=== PATIENT | female | born 1965 | race Caucasian/White ===

== ENCOUNTER 2017-09-09 12:20 | Inpatient (IN) | payer SELFPAY ==
[~2017-09-09] VITALS: Ht 162.6 cm; Wt 85.9 kg
[2017-09-09] VITALS (9 sets, daily range): BP systolic 151–176; BP diastolic 99–112
[2017-09-09] MEDS ORDERED: LABETALOL 20 MG/4 ML DISP.SYRIN. IVP ONE (12:45)
--- NOTE | 2017-09-09 12:45 | RAD ---
PQRS Compliance Statement: One or more of the following individualized dose reduction techniques were utilized for this examination: 1. Automated exposure control 2. Adjustment of the mA and/or kV according to patient size 3. Use of iterative reconstruction technique CT HEAD WITHOUT CONTRAST History: cva . Dizziness, left leg heaviness. Comparison: None. Procedure: Axial images are obtained of the head from the skull base through the vertex without IV contrast. Findings: Richey-white matter differentiation is preserved. The ventricles and sulci are normal for the patient's age.. No mass-effect, midline shift, hemorrhage or obvious acute infarction is identified. Basilar cisterns are patent. Bone windows demonstrate no significant calvarial abnormality.The visualized paranasal sinuses appear clear. Mastoid air cells are well aerated. IMPRESSION: No acute intracranial abnormality. Code stroke results called to Dr. Duvall in the ED at 12:39 PM.
[2017-09-09 12:58] LABS: BASO # 0.2 x10^3/uL (0.0-0.2); BASO % 2 % (0-3); EOS % 3 % (0-3); HEMATOCRIT 38.9 % (36.0-47.0); HEMOGLOBIN 13.2 g/dL (12.0-15.5); LYMPH # 1.5 x10^3/uL (1.0-4.8); LYMPH % 17 % (24-48); MEAN CORPUSCULAR HEMOGLOBIN 31 pg (25-35); MEAN CORPUSCULAR HGB CONC 34 g/dL (31-37); MEAN CORPUSCULAR VOLUME 93 fL (79-100); MONO % 5 % (0-9); NEUT % 73 % (31-73); PLATELET COUNT 295 x10^3/uL (140-400); RED CELL DISTRIBUTION WIDTH 13.7 % (11.5-14.5); WHITE BLOOD COUNT 8.8 x10^3/uL (4.0-11.0)
[2017-09-09 13:09] LABS: CALCIUM 9.2 mg/dL (8.5-10.1); CREATININE 1.1 mg/dL (0.6-1.0); GFR 52.4; POTASSIUM 3.8 mmol/L (3.5-5.1)
--- NOTE | 2017-09-09 13:10 | EKG ---
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
[2017-09-09 13:11] LABS: NEG OBC SER NEG; POS OBC SER POS; PROTHROMBIN TIME PATIENT 12.5 SEC (11.7-14.0)
[2017-09-09 13:15] LABS: ALBUMIN 4.2 g/dL (3.4-5.0); ALBUMIN/GLOBULIN RATIO 1.2 (1.0-1.7); TOTAL BILIRUBIN 0.4 mg/dL (0.2-1.0); TOTAL PROTEIN 7.6 g/dL (6.4-8.2)
[2017-09-09] MEDS ORDERED: ALTEPLASE IV ONE (13:15)
[2017-09-09] MEDS ORDERED: ALTEPLASE IV SCH (13:15)
--- NOTE | 2017-09-09 13:45 | PHYS DOC ---
Past Medical History Past Medical History: Other Additional Past Medical Histor: "thyroid problems" Past Surgical History: No Surgical History Alcohol Use: None Drug Use: None Adult General Chief Complaint Chief Complaint: NEURO SYMPTOMS/DEFICITS HPI HPI Patient is a 52 year old female with history of hypothyroidism presents with acute onset left lower extremity weakness or loss of sensation and decreased sensation to left upper extremity. Time of onset was 30 minutes prior to ED arrival. Patient was standing in her kitchen at times symptoms began. She first noticed while standing in the kitchen. Patient arrives to the ED by. A code was brought back to a treatment room. Patient states left leg remains heavy numbness left arm and left foot are resolved. Patient denies headache, chest pain, palpitations, change of vision, speech, upper extremity weakness or loss of balance. Patient's blood pressure noted to be elevated at 201/116 triage. Patient denies knowledge of chin, but states she has not seen a doctor in years and does not take any medications on a regular basis. Patient is a 1.5 pack per day smoker with a [id number] history patient drinks occasional alcohol. She is accompanied at bedside by her mother and niece. Patient does not currently have a primary care physician.[] Review of Systems Review of Systems ROS as per HPI. All other systems were reviewed and found to be within normal limits, except as documented in this note. Current Medications Current Medications Current Medications Medications (Trade) Dose Ordered Sig/Axel Start Time Stop Time Status Last Admin Dose Admin Alteplase, Recombinant 0 ml @ 0 mls/hr Q1H 09/09/17 13:15 09/09/17 13:16 DC 09/09/17 13:22 72.1 MLS/HR Labetalol HCl (Normodyne) 20 mg 1X ONCE 09/09/17 12:45 09/09/17 12:47 DC 09/09/17 12:55 20 MG Nicardipine HCl 50 mg/Sodium Chloride 270 ml @ 0 mls/hr CONT PRN 09/09/17 13:00 09/09/17 19:36 DC 09/09/17 13:25 25 MLS/HR Allergies Allergies Allergies Coded Allergies Type Severity Reaction Last Updated Verified No Known Drug Allergies 09/09/17 No Physical Exam Physical Exam Constitutional: Well developed, well nourished, no acute distress, non-toxic appearance. [] HENT: Normocephalic, atraumatic, bilateral external ears normal, oropharynx moist, no oral exudates, nose normal. [] Eyes: PERRLA, EOMI, conjunctiva normal, no discharge. [] Neck: Normal range of motion, no tenderness, supple, no stridor. [] Cardiovascular:Heart rate regular rhythm, no murmur [] Lungs & Thorax: Bilateral breath sounds clear to auscultation [] Abdomen: Bowel sounds normal, soft, no tenderness, no masses, no pulsatile masses. [] Skin: Warm, dry, no erythema, no rash. [] Back: No tenderness, no CVA tenderness. [] Extremities: No tenderness, no cyanosis, no clubbing, ROM intact, no edema. [] Neurologic: Alert and oriented X 3, cranial nerves II through XII grossly intact , left lower extremity weakness. NIH stroke score of 3 per nurse stroke assessment. [] Psychologic: Affect normal, judgement normal, mood normal. [] Current Patient Data Vital Signs Vital Signs Date Time Temp Pulse Resp B/P (MAP) Pulse Ox O2 Delivery O2 Flow Rate FiO2 09/09/17 14:00 63 16 95 09/09/17 12:55 200/121 09/09/17 12:25 98.2 Room Air 98.2 Lab Values Laboratory Tests Test 09/09/17 12:40 09/09/17 12:42 White Blood Count 8.8 x10^3/uL (4.0-11.0) Red Blood Count 4.20 x10^6/uL (3.50-5.40) Hemoglobin 13.2 g/dL (12.0-15.5) Hematocrit 38.9 % (36.0-47.0) Mean Corpuscular Volume 93 fL (79-100) Mean Corpuscular Hemoglobin 31 pg (25-35) Mean Corpuscular Hemoglobin Concent 34 g/dL (31-37) Red Cell Distribution Width 13.7 % (11.5-14.5) Platelet Count 295 x10^3/uL (140-400) Neutrophils (%) (Auto) 73 % (31-73) Lymphocytes (%) (Auto) 17 % (24-48) L Monocytes (%) (Auto) 5 % (0-9) Eosinophils (%) (Auto) 3 % (0-3) Basophils (%) (Auto) 2 % (0-3) Neutrophils # (Auto) 6.4 x10^3uL (1.8-7.7) Lymphocytes # (Auto) 1.5 x10^3/uL (1.0-4.8) Monocytes # (Auto) 0.5 x10^3/uL (0.0-1.1) Eosinophils # (Auto) 0.3 x10^3/uL (0.0-0.7) Basophils # (Auto) 0.2 x10^3/uL (0.0-0.2) Prothrombin Time 12.5 SEC (11.7-14.0) Prothrombin Time INR 1.0 (0.8-1.1) PTT 34 SEC (24-38) Sodium Level 138 mmol/L (136-145) Potassium Level 3.8 mmol/L (3.5-5.1) Chloride Level 102 mmol/L (98-107) Carbon Dioxide Level 30 mmol/L (21-32) Anion Gap 6 (6-14) Blood Urea Nitrogen 18 mg/dL (7-20) Creatinine 1.1 mg/dL (0.6-1.0) H Estimated GFR (Cockcroft-Gault) 52.4 BUN/Creatinine Ratio 16 (6-20) Glucose Level 85 mg/dL (70-99) Calcium Level 9.2 mg/dL (8.5-10.1) Total Bilirubin 0.4 mg/dL (0.2-1.0) Aspartate Amino Transferase (AST) 34 U/L (15-37) Alanine Aminotransferase (ALT) 34 U/L (14-59) Alkaline Phosphatase 86 U/L (46-116) Total Protein 7.6 g/dL (6.4-8.2) Albumin 4.2 g/dL (3.4-5.0) Albumin/Globulin Ratio 1.2 (1.0-1.7) Serum Test, Qualitative Negative (NEG) Glucose (Fingerstick) 84 mg/dL (70-99) Laboratory Tests 09/09/17 12:40 Laboratory Tests 09/09/17 12:40 EKG EKG [EKG: Sinus rhythm, rate 77, no acute ST-T wave changes, QTC 443. Edition by this physician.] Radiology/Procedures Radiology/Procedures [CT head: No acute intracranial disease per radiology report.] Course & Med Decision Making Course & Med Decision Making Pertinent Labs and Imaging studies reviewed. (See chart for details) [Patient activated for code stroke on ED arrival. CT head negative, and I stroke score 3 without significant clinical improvement. Patient does not meet exclusion criteria for TPA with the exception of hypertension which was treated prior to administration. Labetalol given for initial blood pressure management. Patient placed on Cardene drip instructions to pain systolic blood pressure less than 185 and diastolic blood pressure less than 100. Risks, benefits and alternatives of TPA discussed in detail with the patient. Patient was able to restated the purpose, potential benefits and risks of TPA and gives verbal consent prior to administration. Family member's and did not have any questions regarding administration of TPA. Dr. Lees bacon de rinder for neurology consults his degrees for plans to administer TPA . Dr Moya to admit the ICU. TPA administered. Blood pressure control. Patient has some gingival bleeding over reported tooth. Packing placed. Critical care time: 45 minutes ] Dragon Disclaimer Dragon Disclaimer This electronic medical record was generated, in whole or in part, using a voice recognition dictation system. Departure Departure Impression: Primary Impression: CVA (cerebral vascular accident) Additional Impression: Left-sided weakness Disposition: 09 ADMITTED INPATIENT Admitting Physician: Marlyn Moya Condition: CRITICAL Referrals: NO PCP (PCP) Problem Qualifiers AMADO STARR DO Sep 09, 2017 13:45
[2017-09-09] MEDS ORDERED: IV NORMAL SALINE 50ML 50 ML IV ONE (14:15)
[2017-09-09] MEDS ORDERED: CONTRAST GIVEN MC PRN (15:00)
[2017-09-09] MEDS ORDERED: IOHEXOL 300 MG/ML 100ML VIAL. IV ONE (15:30)
[2017-09-09] MEDS ORDERED: ACETAMINOPHEN 325 MG TABLET. PO PRN ×2 (15:45)
[2017-09-09] MEDS: MORPHINE SULFATE 4 MG/ML DISP.SYRIN. IV PRN ×2 (15:49→16:40)
--- NOTE | 2017-09-09 16:09 | RAD ---
PQRS Compliance Statement: One or more of the following individualized dose reduction techniques were utilized for this examination: 1. Automated exposure control 2. Adjustment of the mA and/or kV according to patient size 3. Use of iterative reconstruction technique CT ANGIOGRAPHY HEAD AND NECK Clinical Indication: STROKE Comparison: CT head without contrast, earlier same day. Technique: Helical CT imaging from the aortic arch to the skull cortex is performed after 60 cc of Omnipaque [address] angiogram protocol. 3-D MIP reconstructions of the [place] and of the cervical carotid arteries is performed. Stenosis calculations for CT, MR and conventional angiography are based upon measurements of the distal ICA diameter in accordance with NASCET methodology. Stenosis calculations for carotid ultrasound studies are derived from validated velocity criteria which are known to correlate with the NASCET methodology. Findings: The cervical common and internal carotid arteries are patent. The right vertebral artery is dominant. Left vertebral artery distally appears to end in PICA. Basilar artery is intact. Persistent origin of the right posterior cerebral artery. The left posterior cerebral artery is intact. The distal internal carotid arteries are patent. Anterior circulation is intact. There is no intracranial aneurysm. No focal stenosis or occlusion is seen. In the right occipital lobe there is a round faintly enhancing intra-axial mass measuring 2.8 x 2.6 x 2.7 cm. There is a thin halo of hypodensity that may be edema. No other abnormal enhancement in the brain parenchyma is identified. No consolidation in the lung apices. No cervical adenopathy. IMPRESSION: 1. Normal CTA head and neck findings. 2. There is a round faintly enhancing intra-axial mass in the right occipital lobe. There is minimal surrounding edema. Recommend further evaluation with MR brain with and without contrast.
[2017-09-09] MEDS ORDERED: BUTALB/APAP/CAFEIN 50/325/40MG TABLET. PO PRN (16:30)
[2017-09-09] MEDS ORDERED: MORPHINE SULFATE 4 MG/ML DISP.SYRIN. IV PRN (16:30)
[2017-09-09] MEDS ORDERED: MORPHINE SULFATE 4 MG/ML DISP.SYRIN. IV ONE (16:30)
--- NOTE | 2017-09-09 16:34 | PDOC2 ---
NEUROLOGY CONSULT Date of Admission Date of Admission DATE: 09/09/17 TIME: 15:59 Reason for Consult Reason for Consult: IMPRESSION: Left side paresthesia, heaviness and weakness. Hypertensive urgency, BP 200/110 mmHg. HTN Smoking. Obesity. No aneurysm or AVM on CTA. RECOMMENDATIONS/PLAN: BP control. TPA was administrated in the ER after all criteria met and patient consented. HCT performed. CTA performed, brain mass suggested. Brain MRI w/wo contrast, Stat. Treat medical diseases. Carotid A US + Doppler. Echo + Bubble study. Fasting lipids in am Tylenol and morphine prn for headaches (HTN, Calcium channel facundo side effects also contribute). OT/PT Discussed with her daughter at bedside in ICU. HISTORY OF THE PRESENT ILLNESS: 52-y-old female patient with above medical disease developed symptoms of left side paresthesia, numbness, heaviness and weakness while working in kitchen at home. Her symptoms lasted for about a half hour before she was brought to the ER. Her symptoms still persistent and her BP was 200/110 mmHg. Her HCT was negative w/o signs of ICH or SAH. After all criteria were met and patient consent, TPA was administrated. Patient was transferred to ICU. Patient then complained severe headache. CTA results returned reported a brain mass. Brain MRI Stat. Past Medical History: Thyroid problems" Has not seen physician for a long time. HTN has not controlled. Past Surgical History: No major surgery recently. ALLERGY: Reviewed. MEDICATIONS: Refer to [facility] FAMILY HISTORY: Non contributory. SOCIAL HISTORY: Lives at home. Smoking. REVIEW OF SYSTEMS: Constitutional: Obesity. Head: No recent traumatic brain or head injury. Skin: No edema, or rash. Ear: No infection. Eyes: No vision loss or color blindness. Nose: No bleeding or purulent discharges. Hearing: No hearing decrease. Neck: No injury. Cardiac: HTN. Pulmonary: No COPD. GI: No GI ulcer, GI bleeding. Urinary/genital: UTI. Endocrinologic: Obesity. Thyroidism. Skeletomuscular: No muscular atrophy, deformity. Neurological: see HP. Psychiatric: Denies drug use/abuse. Otherwise, not [id number] review of systems. PHYSICAL EXAMINATION: General appearance is in acute distress. HEENT: Normocephalic and nontraumatic. Eyes, nose, ears, and throat are unremarkable. Neck is supple. No lymphadenopathy. No crepitus. Cardiovascular: S1, S2, regular rate and rhythm. Pulmonary: Clear to auscultation bilaterally. Abdomen: Bowel sounds are positive. Abdomen is soft, nontender, and nondistended. Extremities: No rash, lesions, or edema. No restriction of range of motion NEUROLOGICAL EXAMINATION: Awake. Oriented to place and person but not sure about time. PERRL. EOMI. CN: no focal findings. Muscle tone: within normal. Muscle strength: 4 left LE, 5- the rest. DTR: 1+ due to obesity. Plantar reflex: Neutral response bilaterally Gait: not examined in bed. Sensory exam: no acute abnormal findings. Not able to access cerebellar signs due to not cooperative. F-T-N test not performed. Current Medications Current Medications Current Medications Labetalol HCl (Normodyne) 20 mg 1X ONCE IVP Last administered on 09/09/17 12 :55; Start 09/09/17 at 12:45; Stop 09/09/17 at 12:47; Status DC Nicardipine HCl 50 mg/Sodium Chloride 270 ml @ 0 mls/hr CONT PRN IV SEE I/O RECORD Last administered on 09/09/17 13:25; Start 09/09/17 at 13:00 Alteplase, Recombinant 0 ml @ 0 mls/hr 1X ONCE IV Last administered on 13:17; Start 09/09/17 at 13:15; Stop 09/09/17 at 13:16; Status DC Alteplase, Recombinant 0 ml @ 0 mls/hr Q1H IV Last administered on 09/09/17 13:22; Start 09/09/17 at 13:15; Stop 09/09/17 at 13:16; Status DC Sodium Chloride 50 ml @ 0 mls/hr 1X ONCE IV Last administered on 09/09/17 14 :18; Start 09/09/17 at 14:15; Stop 09/09/17 at 14:16; Status DC Iohexol (Omnipaque 300 Mg/ml) 60 ml 1X ONCE IV Last administered on 15:18; Start 09/09/17 at 15:30; Stop 09/09/17 at 15:31; Status DC Info (Do NOT chart on this entry -- for MONITORING) 1 each PRN DAILY PRN MC SEE COMMENTS; Start 09/09/17 at 15:00; Stop 09/11/17 at 14:59 Morphine Sulfate 2 mg PRN Q3HRS PRN IV PAIN Last administered on 09/09/17t 15: 49; Start 09/09/17 at 15:45 Acetaminophen (Tylenol) 325 mg PRN Q6HRS PRN PO MILD PAIN / TEMP; Start at 15:45 Acetaminophen (Tylenol) 650 mg PRN Q6HRS PRN PO MILD PAIN; Start 09/09/17 at 15:45 Allergies Allergies: Coded Allergies: No Known Drug Allergies (Unverified , 09/09/17) Vitals VITALS Vital Signs Date Time Temp Pulse Resp B/P (MAP) Pulse Ox O2 Delivery O2 Flow Rate FiO2 09/09/17 14:20 60 16 97 09/09/17 12:55 200/121 09/09/17 12:25 98.2 Room Air 98.2 Labs Labs Laboratory Tests Test 09/09/17 12:40 09/09/17 12:42 White Blood Count 8.8 x10^3/uL (4.0-11.0) Red Blood Count 4.20 x10^6/uL (3.50-5.40) Hemoglobin 13.2 g/dL (12.0-15.5) Hematocrit 38.9 % (36.0-47.0) Mean Corpuscular Volume 93 fL (79-100) Mean Corpuscular Hemoglobin 31 pg (25-35) Mean Corpuscular Hemoglobin Concent 34 g/dL (31-37) Red Cell Distribution Width 13.7 % (11.5-14.5) Platelet Count 295 x10^3/uL (140-400) Neutrophils (%) (Auto) 73 % (31-73) Lymphocytes (%) (Auto) 17 % (24-48) Monocytes (%) (Auto) 5 % (0-9) Eosinophils (%) (Auto) 3 % (0-3) Basophils (%) (Auto) 2 % (0-3) Neutrophils # (Auto) 6.4 x10^3uL (1.8-7.7) Lymphocytes # (Auto) 1.5 x10^3/uL (1.0-4.8) Monocytes # (Auto) 0.5 x10^3/uL (0.0-1.1) Eosinophils # (Auto) 0.3 x10^3/uL (0.0-0.7) Basophils # (Auto) 0.2 x10^3/uL (0.0-0.2) Prothrombin Time 12.5 SEC (11.7-14.0) Prothromb Time International Ratio 1.0 (0.8-1.1) Activated Partial Thromboplast Time 34 SEC (24-38) Sodium Level 138 mmol/L (136-145) Potassium Level 3.8 mmol/L (3.5-5.1) Chloride Level 102 mmol/L (98-107) Carbon Dioxide Level 30 mmol/L (21-32) Anion Gap 6 (6-14) Blood Urea Nitrogen 18 mg/dL (7-20) Creatinine 1.1 mg/dL (0.6-1.0) Estimated GFR (Cockcroft-Gault) 52.4 BUN/Creatinine Ratio 16 (6-20) Glucose Level 85 mg/dL (70-99) Calcium Level 9.2 mg/dL (8.5-10.1) Total Bilirubin 0.4 mg/dL (0.2-1.0) Aspartate Amino Transf (AST/SGOT) 34 U/L (15-37) Alanine Aminotransferase (ALT/SGPT) 34 U/L (14-59) Alkaline Phosphatase 86 U/L (46-116) Total Protein 7.6 g/dL (6.4-8.2) Albumin 4.2 g/dL (3.4-5.0) Albumin/Globulin Ratio 1.2 (1.0-1.7) Serum Test, Qualitative Negative (NEG) Glucose (Fingerstick) 84 mg/dL (70-99) Laboratory Tests Test 09/09/17 12:40 09/09/17 12:42 White Blood Count 8.8 x10^3/uL (4.0-11.0) Red Blood Count 4.20 x10^6/uL (3.50-5.40) Hemoglobin 13.2 g/dL (12.0-15.5) Hematocrit 38.9 % (36.0-47.0) Mean Corpuscular Volume 93 fL (79-100) Mean Corpuscular Hemoglobin 31 pg (25-35) Mean Corpuscular Hemoglobin Concent 34 g/dL (31-37) Red Cell Distribution Width 13.7 % (11.5-14.5) Platelet Count 295 x10^3/uL (140-400) Neutrophils (%) (Auto) 73 % (31-73) Lymphocytes (%) (Auto) 17 % (24-48) Monocytes (%) (Auto) 5 % (0-9) Eosinophils (%) (Auto) 3 % (0-3) Basophils (%) (Auto) 2 % (0-3) Neutrophils # (Auto) 6.4 x10^3uL (1.8-7.7) Lymphocytes # (Auto) 1.5 x10^3/uL (1.0-4.8) Monocytes # (Auto) 0.5 x10^3/uL (0.0-1.1) Eosinophils # (Auto) 0.3 x10^3/uL (0.0-0.7) Basophils # (Auto) 0.2 x10^3/uL (0.0-0.2) Prothrombin Time 12.5 SEC (11.7-14.0) Prothromb Time International Ratio 1.0 (0.8-1.1) Activated Partial Thromboplast Time 34 SEC (24-38) Sodium Level 138 mmol/L (136-145) Potassium Level 3.8 mmol/L (3.5-5.1) Chloride Level 102 mmol/L (98-107) Carbon Dioxide Level 30 mmol/L (21-32) Anion Gap 6 (6-14) Blood Urea Nitrogen 18 mg/dL (7-20) Creatinine 1.1 mg/dL (0.6-1.0) Estimated GFR (Cockcroft-Gault) 52.4 BUN/Creatinine Ratio 16 (6-20) Glucose Level 85 mg/dL (70-99) Calcium Level 9.2 mg/dL (8.5-10.1) Total Bilirubin 0.4 mg/dL (0.2-1.0) Aspartate Amino Transf (AST/SGOT) 34 U/L (15-37) Alanine Aminotransferase (ALT/SGPT) 34 U/L (14-59) Alkaline Phosphatase 86 U/L (46-116) Total Protein 7.6 g/dL (6.4-8.2) Albumin 4.2 g/dL (3.4-5.0) Albumin/Globulin Ratio 1.2 (1.0-1.7) Serum Test, Qualitative Negative (NEG) Glucose (Fingerstick) 84 mg/dL (70-99) RAYA MENDES MD Sep 09, 2017 16:34
[2017-09-09] MEDS ORDERED: GLUCAGON,HUMAN RECOMBINANT 1 MG/ML VIAL. IV ONE (16:45)
[2017-09-09] MEDS ORDERED: DEXAMETHASONE SOD PHOS 20 MG/5 ML VIAL. IV ONE (17:15)
--- NOTE | 2017-09-09 17:36 | PDOC1 ---
History and Physical Date of Admission Date of Admission DATE: 09/09/17 TIME: 17:30 Identification/Chief Complaint Chief Complaint hemiplegia, then headache Problems: Source Source: Caregiver, Chart review, Patient History of Present Illness History of Present Illness Ms. Brown is a 52 year old female admitted from ER for CVA. NIH scale 3 for acute onset left lower extremity weakness and oss of sensation. sudden onset this PM, code stroke, t-PA given HTN emergency, labetolol and cardene gtt, still hypertensive, CT angio showed some Right posterior 3 cm mass, Neurosurg consulted, and I discussed with Neuro x2, she called stat transfer to Social History Smoke: <1 pack per day ALCOHOL: occassional Drugs: None Current Problem List Problem List Problems Medical Problems: (1) CVA (cerebral vascular accident) Status: Acute (2) Left-sided weakness Status: Acute Problems: Current Medications Current Medications Current Medications Labetalol HCl (Normodyne) 20 mg 1X ONCE IVP Last administered on 09/09/17 12 :55; Start 09/09/17 at 12:45; Stop 09/09/17 at 12:47; Status DC Nicardipine HCl 50 mg/Sodium Chloride 270 ml @ 0 mls/hr CONT PRN IV SEE I/O RECORD Last administered on 09/09/17 13:25; Start 09/09/17 at 13:00 Alteplase, Recombinant 0 ml @ 0 mls/hr 1X ONCE IV Last administered on 13:17; Start 09/09/17 at 13:15; Stop 09/09/17 at 13:16; Status DC Alteplase, Recombinant 0 ml @ 0 mls/hr Q1H IV Last administered on 09/09/17 13:22; Start 09/09/17 at 13:15; Stop 09/09/17 at 13:16; Status DC Sodium Chloride 50 ml @ 0 mls/hr 1X ONCE IV Last administered on 09/09/17 14 :18; Start 09/09/17 at 14:15; Stop 09/09/17 at 14:16; Status DC Iohexol (Omnipaque 300 Mg/ml) 60 ml 1X ONCE IV Last administered on 15:18; Start 09/09/17 at 15:30; Stop 09/09/17 at 15:31; Status DC Info (Do NOT chart on this entry -- for MONITORING) 1 each PRN DAILY PRN MC SEE COMMENTS; Start 09/09/17 at 15:00; Stop 09/11/17 at 14:59 Morphine Sulfate 2 mg PRN Q3HRS PRN IV PAIN Last administered on 09/09/17t 16: 40; Start 09/09/17 at 15:45 Acetaminophen (Tylenol) 325 mg PRN Q6HRS PRN PO MILD PAIN / TEMP; Start at 15:45 Acetaminophen (Tylenol) 650 mg PRN Q6HRS PRN PO MILD PAIN; Start 09/09/17 at 15:45 Morphine Sulfate 4 mg PRN Q2HR PRN IV PAIN; Start 09/09/17 at 16:30 Morphine Sulfate 2 mg 1X ONCE IV ; Start 09/09/17 at 16:30; Stop 09/09/17 at 16:31; Status DC Acetaminophen/ Butalbital/ Caffeine (Fioricet) 1 tab PRN Q6HRS PRN PO MIGRAINE HEADACHE; Start 09/09/17 at 16:30 Glucagon (Glucagen) 1 mg 1X ONCE IV ; Start 09/09/17 at 16:45; Stop 09/09/17 at 16:46; Status Cancel Dexamethasone Sodium Phosphate (Decadron) 10 mg 1X ONCE IV ; Start 09/09/17 at 17:15; Stop 09/09/17 at 17:21; Status DC Levetiracetam 1000 mg/Sodium Chloride 110 ml @ 440 mls/hr 1X ONCE IV ; Start 09/09/17 at 17:15; Stop 09/09/17 at 17:29; Status DC Allergies Allergies: Coded Allergies: No Known Drug Allergies (Unverified , 09/09/17) ROS Review of System marked headache Eyes: No Blurry vision, No Decreased vision, No Double vision, No Dry eyes, No Excessive tearing, No Eye Pain, No Itchy Eyes, No Loss of vision, No Photophobia , No Scotomata, No Uses contacts, No Uses glasses, No Other HEENT: YES: Heacaches, Other, No: Visual Changes, Hearing change, Nasal congestion, Nasal discharge, Oral lesions, Sinus pain, Sore Throat, Epistaxis, Sneezing, Snoring, Tinnitus, Vertigo, Vocal changes Physical Exam General: Cooperative, moderate distress, severe distress HEENT: EOMI Lungs: Clear to auscultation Heart: no gallops Rectal Exam: not examined Extremities: No edema, Normal pulses Psych/Mental Status: Other (headache, upset, nervous) Vitals Vitals Vital Signs Date Time Temp Pulse Resp B/P (MAP) Pulse Ox O2 Delivery O2 Flow Rate FiO2 09/09/17 14:20 60 16 97 09/09/17 12:55 200/121 09/09/17 12:25 98.2 Room Air 98.2 Labs Labs Laboratory Tests Test 09/09/17 12:40 09/09/17 12:42 White Blood Count 8.8 x10^3/uL (4.0-11.0) Red Blood Count 4.20 x10^6/uL (3.50-5.40) Hemoglobin 13.2 g/dL (12.0-15.5) Hematocrit 38.9 % (36.0-47.0) Mean Corpuscular Volume 93 fL (79-100) Mean Corpuscular Hemoglobin 31 pg (25-35) Mean Corpuscular Hemoglobin Concent 34 g/dL (31-37) Red Cell Distribution Width 13.7 % (11.5-14.5) Platelet Count 295 x10^3/uL (140-400) Neutrophils (%) (Auto) 73 % (31-73) Lymphocytes (%) (Auto) 17 % (24-48) Monocytes (%) (Auto) 5 % (0-9) Eosinophils (%) (Auto) 3 % (0-3) Basophils (%) (Auto) 2 % (0-3) Neutrophils # (Auto) 6.4 x10^3uL (1.8-7.7) Lymphocytes # (Auto) 1.5 x10^3/uL (1.0-4.8) Monocytes # (Auto) 0.5 x10^3/uL (0.0-1.1) Eosinophils # (Auto) 0.3 x10^3/uL (0.0-0.7) Basophils # (Auto) 0.2 x10^3/uL (0.0-0.2) Prothrombin Time 12.5 SEC (11.7-14.0) Prothromb Time International Ratio 1.0 (0.8-1.1) Activated Partial Thromboplast Time 34 SEC (24-38) Sodium Level 138 mmol/L (136-145) Potassium Level 3.8 mmol/L (3.5-5.1) Chloride Level 102 mmol/L (98-107) Carbon Dioxide Level 30 mmol/L (21-32) Anion Gap 6 (6-14) Blood Urea Nitrogen 18 mg/dL (7-20) Creatinine 1.1 mg/dL (0.6-1.0) Estimated GFR (Cockcroft-Gault) 52.4 BUN/Creatinine Ratio 16 (6-20) Glucose Level 85 mg/dL (70-99) Calcium Level 9.2 mg/dL (8.5-10.1) Total Bilirubin 0.4 mg/dL (0.2-1.0) Aspartate Amino Transf (AST/SGOT) 34 U/L (15-37) Alanine Aminotransferase (ALT/SGPT) 34 U/L (14-59) Alkaline Phosphatase 86 U/L (46-116) Total Protein 7.6 g/dL (6.4-8.2) Albumin 4.2 g/dL (3.4-5.0) Albumin/Globulin Ratio 1.2 (1.0-1.7) Serum Test, Qualitative Negative (NEG) Glucose (Fingerstick) 84 mg/dL (70-99) Laboratory Tests Test 09/09/17 12:40 09/09/17 12:42 White Blood Count 8.8 x10^3/uL (4.0-11.0) Red Blood Count 4.20 x10^6/uL (3.50-5.40) Hemoglobin 13.2 g/dL (12.0-15.5) Hematocrit 38.9 % (36.0-47.0) Mean Corpuscular Volume 93 fL (79-100) Mean Corpuscular Hemoglobin 31 pg (25-35) Mean Corpuscular Hemoglobin Concent 34 g/dL (31-37) Red Cell Distribution Width 13.7 % (11.5-14.5) Platelet Count 295 x10^3/uL (140-400) Neutrophils (%) (Auto) 73 % (31-73) Lymphocytes (%) (Auto) 17 % (24-48) Monocytes (%) (Auto) 5 % (0-9) Eosinophils (%) (Auto) 3 % (0-3) Basophils (%) (Auto) 2 % (0-3) Neutrophils # (Auto) 6.4 x10^3uL (1.8-7.7) Lymphocytes # (Auto) 1.5 x10^3/uL (1.0-4.8) Monocytes # (Auto) 0.5 x10^3/uL (0.0-1.1) Eosinophils # (Auto) 0.3 x10^3/uL (0.0-0.7) Basophils # (Auto) 0.2 x10^3/uL (0.0-0.2) Prothrombin Time 12.5 SEC (11.7-14.0) Prothromb Time International Ratio 1.0 (0.8-1.1) Activated Partial Thromboplast Time 34 SEC (24-38) Sodium Level 138 mmol/L (136-145) Potassium Level 3.8 mmol/L (3.5-5.1) Chloride Level 102 mmol/L (98-107) Carbon Dioxide Level 30 mmol/L (21-32) Anion Gap 6 (6-14) Blood Urea Nitrogen 18 mg/dL (7-20) Creatinine 1.1 mg/dL (0.6-1.0) Estimated GFR (Cockcroft-Gault) 52.4 BUN/Creatinine Ratio 16 (6-20) Glucose Level 85 mg/dL (70-99) Calcium Level 9.2 mg/dL (8.5-10.1) Total Bilirubin 0.4 mg/dL (0.2-1.0) Aspartate Amino Transf (AST/SGOT) 34 U/L (15-37) Alanine Aminotransferase (ALT/SGPT) 34 U/L (14-59) Alkaline Phosphatase 86 U/L (46-116) Total Protein 7.6 g/dL (6.4-8.2) Albumin 4.2 g/dL (3.4-5.0) Albumin/Globulin Ratio 1.2 (1.0-1.7) Serum Test, Qualitative Negative (NEG) Glucose (Fingerstick) 84 mg/dL (70-99) VTE Prophylaxis Ordered VTE Prophylaxis Devices: Yes VTE Pharmacological Prophylaxi: Contraindicated Assessment/Plan Assessment/Plan intracranial mass with acute CVA t-PA given in ER CTA showed right post 3 cm mass critical care to ICU, about 30 minutes total time, STAT transfer to [facility] Neuro ICU, images to be clouded over QAMAR COLEMAN MD Sep 09, 2017 17:36
--- NOTE | 2017-09-13 19:34 | PDOC ---
PROGRESS NOTES Assessment Assessment Adding: Neurology Consultation.of 09-09-17 Acute CVA syndrome. Left side paresthesia, heaviness and weakness, onset about 30 minutes before coming the ER.. Hypertensive urgency, BP 200/110 mmHg. HTN Smoking. Obesity. RECOMMENDATIONS/PLAN: BP control. TPA was administrated in the ER after all criteria met and patient consented. HCT performed reported negative. CTA performed after TPA, brain mass suggested. Consulted Neurosurgery Stat for ICP. Brain MRI w/wo contrast, Stat, but patient was unable to do MRI. Treat medical diseases. Carotid A US + Doppler. Echo + Bubble study. Fasting lipids in am Tylenol and morphine prn for headaches (HTN, Calcium channel facundo side effects also contribute). Discussed with her daughter at bedside in ICU. Transfer to [facility]. HISTORY OF THE PRESENT ILLNESS: 52-y-old female patient with above medical disease developed symptoms of left side paresthesia, numbness, heaviness and weakness while working in kitchen at home. Her symptoms lasted for about a half hour before she was brought to the ER. Her symptoms still persistent and her BP was 200/110 mmHg. Her HCT was negative w/o signs of ICH or SAH. After all criteria were met and patient consent, TPA was administrated. Patient was transferred to ICU. Patient then complained severe headache. CTA results returned reported a brain mass. Past Medical History: Thyroid problems" Has not seen physician for a long time. HTN has not controlled. Past Surgical History: No major surgery recently. ALLERGY: Reviewed. MEDICATIONS: Refer to [facility] FAMILY HISTORY: Non contributory. SOCIAL HISTORY: Lives at home. Smoking. REVIEW OF SYSTEMS: Constitutional: Obesity. Head: No recent traumatic brain or head injury. Skin: No edema, or rash. Ear: No infection. Eyes: No vision loss or color blindness. Nose: No bleeding or purulent discharges. Hearing: No hearing decrease. Neck: No injury. Cardiac: HTN. Pulmonary: No COPD. GI: No GI ulcer, GI bleeding. Urinary/genital: UTI. Endocrinologic: Obesity. Thyroidism. Skeletomuscular: No muscular atrophy, deformity. Neurological: see HP. Psychiatric: Denies drug use/abuse. Otherwise, not [id number] review of systems. PHYSICAL EXAMINATION: General appearance is in acute distress. HEENT: Normocephalic and nontraumatic. Eyes, nose, ears, and throat are unremarkable. Neck is supple. No lymphadenopathy. No crepitus. Cardiovascular: S1, S2, regular rate and rhythm. Pulmonary: Clear to auscultation bilaterally. Abdomen: Bowel sounds are positive. Abdomen is soft, nontender, and nondistended. Extremities: No rash, lesions, or edema. No restriction of range of motion NEUROLOGICAL EXAMINATION: Awake. Oriented to place and person but not sure about time. PERRL. EOMI. CN: no focal findings. Muscle tone: within normal. Muscle strength: 4 left LE, 5- the rest. DTR: 1+ due to obesity. Plantar reflex: Neutral response bilaterally Gait: not examined in bed. Sensory exam: no acute abnormal findings. Not able to access cerebellar signs due to not cooperative. F-T-N test not performed. Comment Review of Relevant I have reviewed the following items jose (where applicable) has been applied. RAYA MENDES MD Sep 13, 2017 19:34
--- NOTE | 2017-10-05 00:01 | PDOC3 ---
Discharge Summary Visit Information Date of Admission: Sep 09, 2017 Date of Discharge: Sep 09, 2017 Admitting Diagnosis: CVA Final Diagnosis Stroke and Acute CVA syndrome. Left side paresthesia, heaviness and weakness, onset about 30 minutes before coming the ER.. Hypertensive, malignant, HTN Smoking. Obesity. Problems Medical Problems: (1) CVA (cerebral vascular accident) Status: Acute (2) Left-sided weakness Status: Acute Brief Hospital Course Allergies Allergies Coded Allergies Type Severity Reaction Last Updated Verified No Known Drug Allergies 09/09/17 No Brief Hospital Course Ms. Brown is a 52 old patient with above medical disease developed symptoms of left side paresthesia, numbness, heaviness and weakness while working in kitchen at home. Her symptoms lasted for about a half hour before she was brought to the ER. Her symptoms still persistent and her BP was 200/110 mmHg. Her HCT was negative w/o signs of ICH or SAH. After all criteria were met and patient consent, TPA was administrated. Patient was transferred to ICU. She had severe and terrible headache e. CTA results returned reported a brain mass. Dr. Lees, arranged transfer to [facility] Discharge Information Condition at Discharge: Stable Disposition/Orders: D/C to Another Facility Patient Instructions Patient Instructions A/D same day QAMAR COLEMAN MD Oct 05, 2017 00:01
== END 2017-09-09 17:40 | disposition short-term general hospital (02) | DRG 62 ==
LOC: ER 13:26 → 1 WEST ICU 14:02
PROVIDERS: ADMIT Internal Medicine; ATTEND Internal Medicine
DX: I63.9 Cerebral infarction, unspecified (principal); I16.1 Hypertensive emergency; G81.90 Hemiplegia, unspecified affecting unspecified side; E03.9 Hypothyroidism, unspecified; I10 Essential (primary) hypertension; R29.703 NIHSS score 3; E66.9 Obesity, unspecified; F17.210 Nicotine dependence, cigarettes, uncomplicated; Z68.32 Body mass index [BMI] 32.0-32.9, adult; G93.9 Disorder of brain, unspecified
CPT/HCPCS: 36415; 37195; 70450; 70496; 70498; 80053; 82962; 84703; 85025; 85610; 85730; 93005; 96365; 96375; J1100; J1953; J2270; J2997; J3490; J7050; Q9967; 99291-25; J7030